=== PATIENT | male | born 1995 | race Caucasian/White ===

== ENCOUNTER → 2017-07-28 | Outpatient (CLI) | payer OTHER | LOC: FIMAGING 16:05 | PROVIDERS: ATTEND Orthopaedic Surgery Hand Surgery | DX: M24.412 Recurrent dislocation, left shoulder (principal); M24.012 Loose body in left shoulder ==

== ENCOUNTER 2017-09-10 11:00 | Day surgery (SDC) | payer OTHER ==
--- NOTE | 2017-09-09 22:46 | PDGENHP ---
History and Physical History and Physical: 21 yo male, presenting for left shoulder surgery by dr. jimenez on 09/10/17 for left shoulder instability. pmh: seizures, shoulder pain, shoulder instability, hill-sachs lesion meds: onfi 10mg 4 tabs qAM and qPM soc: denies x3 fh: maternal grandfather: DM, heard disease, htn PE: left shoulder: active abduction 80 deg, noted apprehension, ttp throughout shoulder joint, full elbow/wrist/digit rom, grossly nvid a/p: 21 yo male, to undergo left shoulder surgery for instability and pain by dr jimenez for left shoulder scope, debridement, remplissage, capsular shift
[2017-09-10] MEDS ORDERED: LR 1,000 ML IV SCH (11:22)
[2017-09-10] MEDS ORDERED: CLINDAMYCIN 900 MG/DEXTROSE 50 ML IV ONE (11:22)
--- NOTE | 2017-09-10 11:57 | PDANEPAE ---
ANE Past Medical History - Cardiovascular History Hx Hypertension: No Hx Arrhythmias: No Hx Chest Pain: No Hx Coronary Artery / Peripheral Vascular Disease: No Hx CHF / Valvular Disease: No Hx Palpitations: No - Pulmonary History Hx COPD: No Hx Asthma/Reactive Airway Disease: No Hx Recent Upper Respiratory Infection: No Hx Oxygen in Use at Home: No Hx Sleep Apnea: No Sleep Apnea Screening Result - Last Documented: Negative - Neurologic History Hx Cerebrovascular Accident: No Hx Seizures: Yes Hx Dementia: No Neurologic History Comment: siezure disorder - Endocrine History Hx Diabetes: No - Renal History Hx Renal Disorders: No - Liver History Hx Hepatic Disorders: No - Neurological & Psychiatric Hx Hx Neurological and Psychiatric Disorders: Yes Neurological / Psychiatric History Comment: seizures - Cancer History Hx Cancer: No - Congenital Disorder History Hx Congenital Disorders: No - GI History Hx Gastrointestinal Disorders: No - Other Health History Other Health History: none - Chronic Pain History Chronic Pain: No - Surgical History Prior Surgeries: none ANE Review of Systems Review of Systems: - Exercise capacity METS (RN): 5 METS ANE Patient History - Allergies Allergies/Adverse Reactions: Penicillins Allergy (Mild, Verified 09/09/17 13:43) Vomiting - Home Medications Home Medications: Onfi 09/09/17 [Last Taken 09/10/17 08:00] - NPO status NPO Since - Liquids (Date): 09/09/17 NPO Since - Liquids (Time): 22:00 NPO Since - Solids (Date): 09/09/17 NPO Since - Solids (Time): 19:00 - Smoking Hx Smoking Status: Never smoked - Family Anes Hx Family Hx Anesthesia Complications: none ANE Labs/Vital Signs - Vital Signs Blood Pressure: 115/66 Heart Rate: 76 Respiratory Rate: 12 O2 Sat (%): 97 Height: 185.42 cm Weight: 79.379 kg ANE Physical Exam - Airway Neck exam: FROM Mallampati Score: Class 2 Mouth exam: normal dental/mouth exam - Pulmonary Pulmonary: no respiratory distress - Cardiovascular Cardiovascular: regular rate and rhythym - ASA Status ASA Status: II ANE Anesthesia Plan Anesthesia Plan: GA w LMA
[2017-09-10] MEDS ORDERED: ROPIVACAINE HCL 20 MG/10 ML INJ EP ONE ×3 (12:00→14:01)
[2017-09-10] MEDS ORDERED: MIDAZOLAM 2 MG/2 ML VIAL ONE (12:34)
[2017-09-10] MEDS ORDERED: fentaNYL 100 MCG/2 ML INJ ONE ×4 (12:35→15:11)
[2017-09-10] MEDS ORDERED: LIDOCAINE 2% 100 MG/5 ML SYR ONE (12:35)
[2017-09-10] MEDS ORDERED: ONDANSETRON 4 MG/2 ML VIAL ONE (12:35)
[2017-09-10] MEDS ORDERED: PROPOFOL 200 MG/20 ML VIAL ONE ×2 (12:35→13:07)
[2017-09-10] MEDS ORDERED: ONDANSETRON 4 MG/2 ML VIAL IVP PRN ×3 (14:41→14:47)
[2017-09-10] MEDS ORDERED: PROMETHAZINE HCL 25 MG/ML INJ IVP PRN (14:41)
[2017-09-10] MEDS ORDERED: HYDROCODONE/APAP 5/325 TAB PO PRN (14:41)
[2017-09-10] MEDS ORDERED: ONDANSETRON DISINTEGRATING 4 MG TAB PO PRN (14:41)
[2017-09-10] MEDS ORDERED: OXYCODONE/APAP 5/325 TAB PO PRN ×2 (14:41)
[2017-09-10] MEDS ORDERED: ALBUTEROL 3 ML DEYVIAL IH PRN (14:47)
[2017-09-10] MEDS ORDERED: fentaNYL 100 MCG/2 ML INJ IVP PRN (14:47)
[2017-09-10] MEDS ORDERED: NALOXONE HCL 0.4 MG/ML INJ IVP PRN (14:47)
[2017-09-10] MEDS ORDERED: HYDROmorphONE/DILAUDID 1 MG/ML INJ IVP PRN (14:47)
--- NOTE | 2017-09-10 14:47 | POSTOPPROG ---
Post Op Note Date of Operation: 09/10/17 Surgeon: Aliyah Sherwood Paper Wood Cutter: matthias perez pa-c Anesthesia: GET(General Endotracheal) Pre-op Diagnosis: left shoulder pain and instability Post-op Diagnosis: left shoulder pain and instability Indication: instability Procedure: shoulder scope, labral repair, capsular shift, decompression Inf/Abcess present in the surg proc area at time of surgery?: No EBL: Minimal Complications: none
--- NOTE | 2017-09-10 14:49 | POSTANESTH ---
Post Anesthetic Evaluation Cardiovascular Status: Similar to Pre-Op Cond Respiratory Status: Similar to Pre-op Cond. Level of Consciousness/Mental Status: Mildly Sleepy, Arousable Pain Control: Adequate, Prn Tx Ordered Nausea/Vomiting Control: Adequate, Prn Tx Ordered Complications Possibly Related to Anesthesia: None Noted
[2017-09-10] MEDS ORDERED: HYDROmorphONE/DILAUDID 2 MG/ML INJ IVP PRN (15:00)
[2017-09-10 15:33] VITALS: TEMP 97.5
[2017-09-10 16:15] VITALS: BP 123/80
[2017-09-10 16:36] VITALS: PULSE 66; O2SAT 93
[2017-09-10 16:48] VITALS: RESP 17
--- NOTE | 2017-09-10 18:05 | GOP ---
[f rep st] OPERATIVE REPORT DATE OF OPERATION: 09/10/2017 SURGEON: Aliyah Sherwood MD [employer] SUPERVISOR: Fady Araya PA-C, medically required for positioning of the arm during arthroscopi c capsular shift and labral reconstruction, and careful retraction of vital neurovascular structures. PREOPERATIVE DIAGNOSIS: 1. Seizure disorder. 2. Left shoulder instability. 3. Left shoulder impingement. POSTOPERATIVE DIAGNOSIS: 1. Seizure disorder. 2. Left shoulder instability. 3. Left shoulder impingement. PROCEDURE PERFORMED: 1. Arthroscopic labral reconstruction. 2. Arthroscopic capsular shift. 3. Arthroscopic subacromial decompression. FINDINGS: ESTIMATED BLOOD LOSS: Minimal. INDICATIONS: A 21-year-old male who has had recurrent shoulder dislocation. Minimal bone loss. Sei zure disorder. Has a neurologist at [facility]. States he is relatively well controlled, even if he had a seizure disorder sometime in June. His neurologist cleared him for surgery, and recommende d general anesthetic for surgery. His clinical, radiographic, and advanced imaging studies show anterior labral pathology. Increased c apsular volume. Hill-Sachs variant with edema, and not significant bone loss in the Hill-Sachs lesio n. No significant bone loss on the glenoid. Patient elects for operative intervention for unstable shoulder. DESCRIPTION OF PROCEDURE: Patient identified in the preoperative holding area. Consent laterality, and preoperative antibiotics were confirmed, delivered. All questions were answered. Mother and gir lfriend were at the bedside. Patient brought into the operating room. General anesthesia. Beach chair position. All extremities well padded. The left upper extremity was prepped and draped in a sterile fashion. Surgical time-o ut was performed. Standard posterior portal technique. Diagnostic arthroscopy included massive infl ammation around the glenohumeral joint. Partial articular-sided cuff tear, less than 20% of the supr aspinatus. Biceps was well located. The sling and tunnel were intact. Subscap was intact. He had a capacious anterior capsular volume with virtually no labrum. We used an anterior viewing portal to find the labrum medially displaced. We had a nice thick capsule deep to the subscap, and we used th is as a bumper for the anterior glenoid. We went around the rotator cuff, found the Hill-Sachs lesio n. It was small, about 5 mm swath. We placed 2 spinal needles in there to identify for possible ___ , and it was still fairly soft with about 7-8 mm of soft bone. We marched up and down the Hil l-Sachs lesion approximately a centimeter to a centimeter and a half, and did not find a good area of purchase for even a possible anchor construct. He had a positive drive-through sign prior to repair . The Hill-Sachs lesion was non-engaging at 90 degrees. Humeral head cartilage was grade 0. The gl enoid cartilage was grade 1 with no grade 4 defect. The biceps anchor was intact. Inflammation of t he posterior capsule. We did an anterior labral reconstruction. Fiber links around a good volume of capsular tissue, and p laced anchors at the 8 o'clock position, 9 o'clock and 10 o'clock positions. Negative drive-through sign after repair. We then went into the subacromial space. Did a subacromial decompression, about 3 mm removal of the anterior and lateral acromion. We inspected the cuff from its bursal surface and it looked excellent and inflamed. All arthroscopic fluid and debris were removed. Portal sites wer e closed with 3-0 nylon. Steri-Strips, Xeroform, 4 x 4's, ABD, and Medipore tape used. We placed 40 cc of 0.2% ropivacaine, 20 cc into the subacromial space, and the rest into the incisions. IMPLANTS USED: Arthrex push locks x3 at the 8 o'clock, 9 o'clock, and 10 o'clock positions anteriorl y. COMPLICATIONS: None. DISPOSITION: Extubated to the PACU in stable condition. /[id number]/MODL
[2017-09-10] MEDS ORDERED: DOCUSATE SODIUM 100 MG CAP PO SCH (21:00)
== END 2017-09-10 16:30 | disposition home or self-care (01) ==
LOC: FSGY 11:00
PROVIDERS: ATTEND Orthopaedic Surgery
PROC: 0RQK4ZZ Repair Left Shoulder Joint, Percutaneous Endoscopic Approach (ICD-10-PCS; principal; 2017-09-10 12:30)
PROC: 0RNH4ZZ Release Left Acromioclavicular Joint, Percutaneous Endoscopic Approach (ICD-10-PCS; principal; 2017-09-10 12:30)
DX: M25.312 Other instability, left shoulder (principal); G40.909 Epilepsy, unspecified, not intractable, without status epilepticus
CPT/HCPCS: C1713; J2001; J2250; J2405; J2704; J2795; J3010

== ENCOUNTER → 2018-05-13 | Outpatient (CLI) | payer OTHER | LOC: FIMAGING 19:35 | PROVIDERS: ATTEND Orthopaedic Surgery | DX: R22.41 Localized swelling, mass and lump, right lower limb (principal) ==

== ENCOUNTER → 2018-07-07 | Outpatient (CLI) | payer OTHER | END | disposition home or self-care (01) | LOC: FIMAGING 18:44 | PROVIDERS: ATTEND Psychiatry & Neurology Neurology | DX: G40.909 Epilepsy, unspecified, not intractable, without status epilepticus (principal) ==